=== PATIENT | female | born 1965 | race Two or more races ===

== ENCOUNTER → 2024-07-03 | Outpatient (CLI) | payer MEDICAID, SELFPAY ==
--- NOTE | 2024-07-03 | XR_ITS ---
Examination: Sinus series 4 views TECHNIQUE: Fiorella villa submentovertex sinus series 4 views Exam date and time: July 03, 2024 1324 hours INDICATIONS: Sinus pressure and pain beginning 2 months ago. FINDINGS: Mild opacity in the frontal ethmoid air cells No fluid levels No retention cysts No cortical bone destruction IMPRESSION: Mild chronic frontal ethmoid sinusitis
== END | disposition home or self-care (01) ==
LOC: CDIM 11:30
PROVIDERS: PCP Physician Assistant; Referring Provider Physician Assistant; Visit Provider Physician Assistant
DX: J32.8 Other chronic sinusitis (principal)
CPT/HCPCS: 70220

== ENCOUNTER 2024-10-08 09:24 | Outpatient (RCR) | payer MEDICAID, SELFPAY ==
--- NOTE | 2024-10-08 09:43 | PTNOTE_ITS ---
PT OP Initial Eval Patient Information Outpatient Physical Therapy Treatment Date: 10/08/24 Visit Reasons: left shoulder pain Medical Diagnosis: M25.512 Start of Care: 10/08/24 Date of Onset: 2 months ago Smoking Status Smoking Status: Never smoker Initial Assessment Subjective: Pt is 59 yr old female who c/o L shoulder pain x2 months attributed to carrying a backpack. Increased pain with reaching OH and behind and lifting things. This limits HH chore tolerance, carrying purse. PMH: allergies Imaging: with provider Pt goal: to get rid of the pain to use the L shoulder more Objective: L shoulder AROM: FF: 80 deg using R shoulder to help lift Abd: 85 deg with pain and R hand to lower down HBB: L5 with pain Topher Roe: positive Empty can: positive Painful arc: positive Assessment: Pt presents with limited L shoulder ROM by high pain and uses the R hand to move it consistent with RC tendonopathy/possible tear. She has poor rehab potential to meet goals due to high pain level and positive special testing and will likely have more pain with therapy visits. Pt would benefit from further diagnostic imaging of L shoulder such as MRI. Short Term and Correction Goals Eval and D/C Treatment Plan Eval and D/C Certification Dates: 10/08/24 Procedure Charges OP PT Eval Mod Complex 30 minutes: Yes
== END 2024-10-18 23:59 | disposition home or self-care (01) ==
LOC: CPTX 09:24
PROVIDERS: PCP Physician Assistant; Referring Provider Physician Assistant; Visit Provider Physician Assistant
DX: M25.512 Pain in left shoulder (principal)
CPT/HCPCS: 97162